=== PATIENT | female | born 1970 | race Caucasian/White ===

== ENCOUNTER → 2017-03-18 | Outpatient (CLI) | payer SELFPAY ==
[~2017-03-18] MED LIST: ALBUAER; ALBUAER INH; BACL10TA PO; BUPR150T47 PO; CYCL10TA7 PO; FENO145T26 PO; GABA-113 PO; GLC/500 PO; LISI-725 PO; LISI40TA PO; LRS10 PO; MECL1TAB42 PO; METO1TAB54 PO; PRVC40 PO; SERT50TA PO
--- NOTE | 2017-03-18 11:08 | Discharge Instructions ---
Discharge Instructions Procedure Procedure Date: Mar 18, 2017. Reason for visit: Thyroid Nodule. Discharge Discharge Date: Mar 18, 2017. Discharge Diagnosis: Right thyroid nodule Instructions Activity Recommendations: No limitations Return to School/Work: no limitations Recommended Home Diet: Resume Previous Diet Provider Instructions: Ultrasound guided fine-needle aspiration was performed on a dominant solid and cystic right lobe nodule with 2 passes utilizing 25-gauge needles. Specimens were reviewed by the pathologist in real-time and deemed adequate for diagnosis. The procedure was well tolerated and without immediate complication. Allergies Coded Allergies: No Known Allergies (Unverified , 03/06/16) Soha Purcell Recommendations: Call your doctor if: * Temperature above 101 degrees * Pain not relieved by pain medicine ordered * There is increased drainage or redness from any incision * You have any unanswered questions or concerns. Your Doctors Instructions noted above were prepared by provider Dwight Chang. Patient Signature Section: Patient Instructions Signature Page Breanne Galvanfallon Patient (or Guardian) Signature/Date: I have read and understand the instructions given to me by my caregivers. Caregiver/RN/Doctor Signature/Date: The above-named patient and/or guardian has received patient instructions on this date. + Original Patient Signature Page (only) stays with chart. Please make copy for patient.
--- NOTE | 2017-03-18 11:40 | DIAGNOSTIC IMAGING REPORT ---
ULTRASOUND-GUIDED FINE-NEEDLE ASPIRATION THYROID CLINICAL HISTORY: Right thyroid nodule. COMPARISON STUDY: Thyroid ultrasound dated 03/04/2017. PROCEDURE: The risks, benefits, and alternatives to the procedure were discussed with the patient. Written informed consent was obtained. The patient was placed supine in ultrasound, and the 2.2 x 2.1 x 1.3 cm solid and cystic nodule in the right lobe of the thyroid was localized by ultrasound and selected for fine needle aspiration. The right neck was prepped and draped in the usual sterile fashion. The nodule was aspirated under ultrasound guidance with 2 passes utilizing 25-gauge needles. Specimens were reviewed by the pathologist in real-time and deemed adequate for diagnosis. The patient tolerated the procedure well and left the department in satisfactory condition. IMPRESSION: Completed fine-needle aspiration of a right thyroid nodule as above. Electronically signed by: Dwight Chang M.D. 03/18/2017 11:38 AM Dictated Date/Time: 03/18/2017 11:37 AM
== END | disposition home or self-care (01) ==
LOC: C.ULTR 10:20
PROVIDERS: ATTEND Physician Assistant
DX: E04.2 Nontoxic multinodular goiter (principal)

== ENCOUNTER 2017-07-14 09:49 | Emergency (ER) | payer SELFPAY ==
[~2017-07-14] VITALS: Ht 154.9 cm; Wt 73.1 kg
[~2017-07-14 09:49] MED LIST changes: -ALBUAER; -BACL10TA PO; -GLC/500 PO; -LISI40TA PO; -LRS10 PO; -PRVC40 PO; -SERT50TA PO
[2017-07-14 09:51] VITALS: Ht 154.9 cm; Wt 73.1 kg
[2017-07-14 10:12] VITALS: O2SAT 98
[2017-07-14 10:26] LABS: MEAN CELL VOLUME 87.2 fL (80-100); MEAN CORPUSCULAR HEMOGLOBIN 30.6 pg (25-34); MEAN CORPUSCULAR HGB CONC 35.1 g/dl (32-36); PLATELET COUNT 207 K/uL (130-400); RED BLOOD COUNT 5.16 M/uL (4.2-5.4); WHITE BLOOD COUNT 10.26 K/uL (4.8-10.8)
--- NOTE | 2017-07-14 10:29 | DIAGNOSTIC IMAGING REPORT ---
CHEST ONE VIEW PORTABLE CLINICAL HISTORY: 46 years-old Female presenting with chest pain. TECHNIQUE: Portable upright AP view of the chest was obtained. COMPARISON: 03/07/2016. FINDINGS: Cardiomediastinal silhouette normal. Lungs and pleural spaces clear. Osseous structures normal. Upper abdomen normal. IMPRESSION: 1. No acute cardiopulmonary disease. Electronically signed by: Lit Ngerete M.D. 07/14/2017 10:28 AM Dictated Date/Time: 07/14/2017 10:28 AM
[2017-07-14 10:34] LABS: PARTIAL THROMBOPLASTIN RATIO 1.2; PROTHROMBIN TIME (PATIENT) 10.7 SECONDS (9.0-12.0)
[2017-07-14 11:02] LABS: BUN/CREATININE RATIO 7.5 (10-20); CALCIUM 8.4 mg/dl (8.5-10.1); CREATININE 0.84 mg/dl (0.60-1.20); POTASSIUM 4.4 mmol/L (3.5-5.1)
[2017-07-14 11:06] LABS: ALB/GLOB RATIO 0.9 (0.9-2); CKMB/CK RATIO 1.6 (0-3.0)
--- NOTE | 2017-07-14 11:07 | EMERGENCY ROOM VISIT NOTE ---
History Report prepared by Naila: Yan Fisher Under the Supervision of: Dr. Clementina Richter D.O. First contact with patient: 10:24 Chief Complaint: CARDIAC ASSESSMENT Stated Complaint: CHEST PAIN, R SHOULDER PAIN, NAUSEA Nursing Triage Summary: Patient reports mid sternal chest pain with radiation to the right shoulder states this started on Friday. Patient has history of Diabeties, HTN, Hyperlipidemia, states she had a cardiac cath two years ago and was told at that time she had a 20% blockage. Patient also c/o nausea this morning denies any shortness of breath. History of Present Illness The patient is a 46 year old female who presents to the Emergency Room with complaints of constant sharp chest pain for the past three days. The patient additionally states that she is having some right sided shoulder pain, and she has been nauseous. The pain is exacerbated with movement. She states that yesterday she woke up very off balance. The patient states that she had similar symptoms two years ago, and a catheterization was done. She states that she was supposed to have a follow up with a television announcer this week, though she did not attend. The patient states that she has a family history of cardiac disease, and he dad of a heart attack before the age of 60. She denies any recent change in medication or activity, and she denies any recent long travels. The patient has a history of smoking as well. Pt denies any reflux, leg swelling, rashes, sores, headache, change in vision, fevers, shortness of breath, vomiting , diarrhea, pain with urination, and melena. Source of History: patient Onset: three days ago Position: chest Quality: sharp Timing: constant Modifying Factors (Worsening): movement Associated Symptoms: + nausea, No vomiting Note: Associated symptoms: Right sided shoulder pain Review of Systems See HPI for pertinent positives & negatives. A total of 10 systems reviewed and were otherwise negative. Past Medical & Surgical Medical Problems: (1) Bronchitis (2) Chest pain at rest (3) Hypertension Surgical Problems: (1) H/O section (2) History of tonsillectomy Family History Diabetes mellitus Heart disease Hypertension Seizures Social History Smoking Status: Current Every Day Smoker Alcohol Use: none Drug Use: none Marital Status: Housing Status: lives with significant other Occupation Status: employed Current/Historical Medications Scheduled Baclofen (Baclofen), 10 MG PO UD Baclofen (Lioresal), 5 MG PO HS Lisinopril (Zestril), 40 MG PO DAILY Metformin Hcl (Glucophage), 500 MG PO BID Pravastatin Sod (Pravastatin Sodium), 40 MG PO DAILY Sertraline (Zoloft), 50 MG PO DAILY Miscellaneous Medications Albuterol Sulfate (Proventil Hfa) Allergies Coded Allergies: No Known Allergies (Unverified , 07/14/17) Physical Exam Vital Signs Date Time Temp Pulse Resp B/P (MAP) Pulse Ox O2 Delivery O2 Flow Rate FiO2 07/14/17 15:13 36.8 61 20 121/75 98 07/14/17 15:12 61 20 121/75 98 Room Air 07/14/17 14:30 69 20 97/51 94 Room Air 07/14/17 13:34 64 18 102/60 94 Room Air 07/14/17 13:08 60 07/14/17 12:33 64 18 102/71 99 Room Air 07/14/17 11:45 62 20 112/64 99 Room Air 07/14/17 10:12 98 Room Air 07/14/17 10:10 96 Room Air 07/14/17 10:06 97 Room Air 07/14/17 10:02 71 07/14/17 09:51 36.8 65 16 131/79 98 Room Air Physical Exam GENERAL: alert, well appearing, well nourished, no distress, non-toxic EYE EXAM: normal conjunctiva, PERRL and EOM's grossly intact OROPHARYNX: Poor dentition. no exudate, no erythema, lips, buccal mucosa, and tongue normal and mucous membranes are moist NECK: supple, no nuchal rigidity, no adenopathy, non-tender LUNGS: Decreased lung sounds bilaterally. No wheezes rhonchi or rales. Normal chest wall mechanics HEART: no murmurs, S1 normal and S2 normal CHEST: Some reproducible chest pain at the bilateral sternal border. ABDOMEN: No pulsatile masses or organomegaly. Abdomen soft, non-tender, normo- active bowel sounds, no masses, no rebound or guarding. BACK: Back is symmetrical on inspection and there is no deformity, no midline tenderness, no CVA tenderness. SKIN: no rashes and no bruising UPPER EXTREMITIES: Tenderness to palpation of the right scapula posteriorly. Upper extremities are grossly normal. LOWER EXTREMITIES: No pitting edema. NEURO EXAM: Normal sensorium, cranial nerves II-XII [grossly] intact, normal speech, no [gross] weakness of arms, no [gross] weakness of legs. [No drift. Finger to nose intact. Gross sensation intact.] Medical Decision & Procedures ER Provider Diagnostic Interpretation: Radiology results have been interpreted by the radiologist and reviewed by me. CHEST ONE VIEW PORTABLE CLINICAL HISTORY: 46 years-old Female presenting with chest pain. TECHNIQUE: Portable upright AP view of the chest was obtained. COMPARISON: 03/07/2016. FINDINGS: Cardiomediastinal silhouette normal. Lungs and pleural spaces clear. Osseous structures normal. Upper abdomen normal. IMPRESSION: 1. No acute cardiopulmonary disease. Electronically signed by: Lit Negrete M.D. 07/14/2017 10:28 AM Dictated Date/Time: 07/14/2017 10:28 AM (CHEST FOR PE) ANGIO WITH CLINICAL HISTORY: 46 years-old Female presenting with chest pain, nausea, elevated d-dimer. TECHNIQUE: Multidetector CT angiography of the chest was performed after administration of intravenous contrast. 3-D volumetric and/or maximum intensity projection (MIP) images were subsequently reconstructed for review. IV contrast: 108 mL of Optiray 320. A dose lowering technique was used consistent with the principles of ALARA (as low as reasonably achievable). COMPARISON: 02/18/2017. CT DOSE (mGy.cm): The estimated cumulative dose is 302.01 mGy.cm. FINDINGS: Application Defense Manager topogram: Unremarkable. Pulmonary vasculature: The study is adequate for assessment of the pulmonary vascular tree. No filling defect within the pulmonary arteries to suggest embolus. Main pulmonary artery not enlarged. No flattening of the interventricular septum. No intracardiac filling defect. Remaining chest: On soft tissue windows, normal thyroid and thoracic inlet. No axillary, supraclavicular, or mediastinal lymphadenopathy. Few small subcentimeter hilar lymph nodes, likely reactive. Normal aorta. Normal heart size. No pericardial or pleural effusion. Few prominent lymph nodes in the marciano hepatis, nonspecific and possibly reactive. Hepatic steatosis may be present with fatty sparing of the gallbladder fossa. On lung windows, trace emphysema at the apices. Persistent subtle diffuse groundglass centrilobular opacities most prominently at the apices. Additional minimal groundglass opacity dependently in the right lower lobe, likely atelectasis. Perifissural 4 mm solid pulmonary nodule in the right lower lobe (series 4 image 152), unchanged from prior. Several additional perifissural nodules also noted and unchanged from prior. Mild bronchial wall thickening may be present. On bone windows, degenerative changes of the thoracic spine. IMPRESSION: 1. No evidence of pulmonary embolus. 2. Trace emphysema. 3. Subtle diffuse groundglass centrilobular opacities at the apices associated with mild bronchial wall thickening. If the patient has a history of smoking, this could be compatible with mild respiratory bronchiolitis/smoking related lung injury, among other possible etiologies. 4. Stable perifissural small pulmonary nodules. 5. Suggestion of hepatic steatosis. Electronically signed by: Lit Negrete M.D. 07/14/2017 12:11 PM Dictated Date/Time: 07/14/2017 12:03 PM Laboratory Results 07/14/17 10:00 07/14/17 10:00 Test 07/14/17 10:00 07/14/17 10:17 Red Blood Count 5.16 M/uL (4.2-5.4) Mean Corpuscular Volume 87.2 fL (80-100) Mean Corpuscular Hemoglobin 30.6 pg (25-34) Mean Corpuscular Hemoglobin Concent 35.1 g/dl (32-36) RDW Standard Deviation 45.5 fL (36.4-46.3) RDW Coefficient of Variation 14.2 % (11.5-14.5) Mean Platelet Volume 10.0 fL (7.4-10.4) Prothrombin Time 10.7 SECONDS (9.0-12.0) Prothromb Time International Ratio 1.0 (0.9-1.1) Activated Partial Thromboplast Time 30.2 SECONDS (21.0-31.0) Partial Thromboplastin Ratio 1.2 D-Dimer 1520 ug/L FEU (0-500) Anion Gap 7.0 mmol/L (3-11) Est Creatinine Clear Calc Drug Dose 74.9 ml/min Estimated GFR () 95.3 Estimated GFR (Non- 82.2 BUN/Creatinine Ratio 7.5 (10-20) Calcium Level 8.4 mg/dl (8.5-10.1) Total Bilirubin 0.3 mg/dl (0.2-1) Aspartate Amino Transf (AST/SGOT) 17 U/L (15-37) Alanine Aminotransferase (ALT/SGPT) 23 U/L (12-78) Alkaline Phosphatase 78 U/L (45-117) Total Creatine Kinase 62 U/L (26-192) Creatine Kinase MB 1.0 ng/ml (0.5-3.6) Creatine Kinase MB Ratio 1.6 (0-3.0) Total Protein 7.4 gm/dl (6.4-8.2) Albumin 3.5 gm/dl (3.4-5.0) Globulin 3.9 gm/dl (2.5-4.0) Albumin/Globulin Ratio 0.9 (0.9-2) Bedside Troponin I < 0.030 ng/ml (0-0.045) Laboratory results per my review. Medications Administered Medications (Trade) Dose Ordered Sig/[place] Route Start Time Stop Time Status Last Admin Dose Admin Sodium Chloride 1,000 ml @ 999 mls/hr Q1H1M STAT IV 07/14/17 11:16 07/14/17 12:16 DC 07/14/17 11:23 999 MLS/HR Al Hydroxide/Mg Hydroxide (Maalox Susp) 30 ml NOW STAT PO 07/14/17 12:24 07/14/17 12:25 DC 07/14/17 12:31 30 ML Ketorolac Tromethamine (Toradol Inj) 30 mg NOW STAT IV 07/14/17 12:24 07/14/17 12:25 DC 07/14/17 12:31 30 MG Ondansetron HCl (Zofran 8mg Iv) 8 mg NOW STAT IV 07/14/17 13:20 07/14/17 13:21 DC 07/14/17 13:34 8 MG ECG Indication: chest pain, back/shoulder pain Rate (beats per minute): 61 Rhythm: normal sinus Findings: no acute ischemic change, no ectopy, other (Normal intervals and normal axis) ED Course 1024: The patient was evaluated in room A4. A complete history and physical exam was performed. 1116: Sodium Chloride 1000 ml @ 999 mls/hr IV 1223: I reevaluated the patient, and she is feeling slightly better now. 1224: Toradol Inj 30mg IV, Maalox Susp 30ml PO 1319: I reassessed the patient, and her pain is better, but she is nauseous. 1320: Zofran 8mg IV 1453: I rechecked the patient, and she is feeling better and ready to go home. I discussed the findings and the treatment plan with the patient. She verbalizes agreement and understanding. She was discharged home. Medical Decision Differential diagnosis: Etiologies such as cardiac ischemia, aortic dissection, pulmonary embolism, pneumonia, pneumothorax, musculoskeletal, infections, pericarditis, myocarditis , esophageal rupture, gastrointestinal, as well as others were entertained. Pt here concerned about cardiac etiology of her chest/back pain given fam hx and personal risk factors. Cardiac cath two years ago pt reports as no intervention and minimal nonobstructive disease. Pt however noncompliant with follow-up. Pt still smoking also. Denies change in activity, no heavy lifting , no trauma, no recent illness. Discussed all results with her. Given neg trop after 3 days of reportedly constant pain and nonobstructive cath within 5 years, doubt ACS. No evidence on CT of pe, dissection, tamponade, effusion, infiltrate. No abd pain or v/d, and other labs reassuring, no fevers, doubt gi bleed, biliary colic, perf, aaa, pancreatitis, PUD, sbo, colitis. Pt improved here with meds, tolerated po. VS stable throughout. Pt observed for several hours as a precaution. Ambulatory with a steady gait. Discussed f/u with cards which she has scheduled for july. Discussed cessation of tobacco abuse. Discussed sx to watch/return for, she verbalized understanding and was agreeable with plan. Medication Reconcilliation Current Medication List: was personally reviewed by me Blood Pressure Screening Patient's blood pressure: Normal blood pressure Impression Primary Impression: Chest pain Additional Impressions: Back pain Tobacco abuse Scribe Attestation The scribe's documentation has been prepared under my direction and personally reviewed by me in its entirety. I confirm that the note above accurately reflects all work, treatment, procedures, and medical decision making performed by me. Departure Information Dispostion Home / Self-Care Referrals Ria Wilkinson PA-C (PCP) Forms IMPORTANT VISIT INFORMATION Patient Instructions [facility] Additional Instructions Please keep your appointment with cardiology. Please call and follow up with your family doctor this week. Please continue regular medications as prescribed. If you have any worsening pain, dizziness or lightheadedness, trouble breathing, vomiting, fevers, or you have any other new concerns, please return the emergency room. Problem Qualifiers Primary Impression: Chest pain Chest pain type: unspecified Qualified Codes: R07.9 - Chest pain, unspecified Additional Impressions: Back pain Back pain location: thoracic back pain Chronicity: acute Back pain laterality: right Qualified Codes: M54.6 - Pain in thoracic spine
[2017-07-14] MEDS ORDERED: SODIUM CHLORIDE 0.9% 1000ML 1,000 ML IV STA (11:16)
[2017-07-14] MEDS ORDERED: BACL10TA PO (11:21)
[2017-07-14] MEDS ORDERED: GLC/500 PO (11:21)
[2017-07-14] MEDS ORDERED: ALBUAER (11:21)
[2017-07-14] MEDS ORDERED: LRS10 PO (11:21)
[2017-07-14] MEDS ORDERED: LISI40TA PO (11:21)
[2017-07-14] MEDS ORDERED: PRVC40 PO (11:21)
[2017-07-14] MEDS ORDERED: SERT50TA PO (11:21)
[2017-07-14] MEDS ORDERED: OPTIRAY 320 IV PRN (11:30)
--- NOTE | 2017-07-14 12:12 | DIAGNOSTIC IMAGING REPORT ---
(CHEST FOR PE) ANGIO WITH CLINICAL HISTORY: 46 years-old Female presenting with chest pain, nausea, elevated d-dimer. TECHNIQUE: Multidetector CT angiography of the chest was performed after administration of intravenous contrast. 3-D volumetric and/or maximum intensity projection (MIP) images were subsequently reconstructed for review. IV contrast: 108 mL of Optiray 320. A dose lowering technique was used consistent with the principles of ALARA (as low as reasonably achievable). COMPARISON: 02/18/2017. CT DOSE (mGy.cm): The estimated cumulative dose is 302.01 mGy.cm. FINDINGS: Mobile Patrol Officer topogram: Unremarkable. Pulmonary vasculature: The study is adequate for assessment of the pulmonary vascular tree. No filling defect within the pulmonary arteries to suggest embolus. Main pulmonary artery not enlarged. No flattening of the interventricular septum. No intracardiac filling defect. Remaining chest: On soft tissue windows, normal thyroid and thoracic inlet. No axillary, supraclavicular, or mediastinal lymphadenopathy. Few small subcentimeter hilar lymph nodes, likely reactive. Normal aorta. Normal heart size. No pericardial or pleural effusion. Few prominent lymph nodes in the marciano hepatis, nonspecific and possibly reactive. Hepatic steatosis may be present with fatty sparing of the gallbladder fossa. On lung windows, trace emphysema at the apices. Persistent subtle diffuse groundglass centrilobular opacities most prominently at the apices. Additional minimal groundglass opacity dependently in the right lower lobe, likely atelectasis. Perifissural 4 mm solid pulmonary nodule in the right lower lobe (series 4 image 152), unchanged from prior. Several additional perifissural nodules also noted and unchanged from prior. Mild bronchial wall thickening may be present. On bone windows, degenerative changes of the thoracic spine. IMPRESSION: 1. No evidence of pulmonary embolus. 2. Trace emphysema. 3. Subtle diffuse groundglass centrilobular opacities at the apices associated with mild bronchial wall thickening. If the patient has a history of smoking, this could be compatible with mild respiratory bronchiolitis/smoking related lung injury, among other possible etiologies. 4. Stable perifissural small pulmonary nodules. 5. Suggestion of hepatic steatosis. Electronically signed by: Lit Negrete M.D. 07/14/2017 12:11 PM Dictated Date/Time: 07/14/2017 12:03 PM
[2017-07-14] MEDS ORDERED: ALUMINUM/MAGNESIUM SUSP 30 ML UDC PO STA (12:24)
[2017-07-14] MEDS ORDERED: KETOROLAC TROMETHAMINE 30 MG/ML VIAL IV STA (12:24)
[2017-07-14] MEDS ORDERED: ONDANSETRON 8 MG/54 ML D5W IV STA (13:20)
[2017-07-14 15:13] VITALS: BP 121/75; PULSE 61; TEMP 36.8; O2SAT 98
== END 2017-07-14 15:20 | disposition home or self-care (01) ==
LOC: C.EDB 09:50 → C.EDA 15:20
DX: M54.6 Pain in thoracic spine (principal); I10 Essential (primary) hypertension; Z83.3 Family history of diabetes mellitus; Z82.49 Family history of ischemic heart disease and other diseases of the circulatory system; Z82.0 Family history of epilepsy and other diseases of the nervous system; F17.200 Nicotine dependence, unspecified, uncomplicated; R07.9 Chest pain, unspecified

== ENCOUNTER 2021-07-26 15:50 | Observation (INO) ==
[2021-07-26] MEDS ORDERED: ACETAMINOPHEN 1000 MG/100 ML IV IV STA (16:55)
[2021-07-26] MEDS ORDERED: KETOROLAC TROMETHAMINE 15 MG/ML VIAL IV STA (16:55)
[2021-07-26] MEDS ORDERED: CEFEPIME 2,000 MG/20 ML VIAL IV STA (16:55)
[2021-07-26] MEDS ORDERED: ONDANSETRON INJ 2 MG/ML 2 ML VIAL IV STA (16:55)
[2021-07-26] MEDS ORDERED: SODIUM CHLORIDE 0.9% 1000ML 1,000 ML IV SCH (17:00)
--- NOTE | 2021-07-26 17:06 | Emergency Department Note ---
Impression & Plan Pyelonephritis, Acute right flank pain, Vomiting, Leukocytosis ED Provider Note NAME: OSVALDO DAVIS AGE: 50 SEX: F : 1970 ARRIVES VIA: Walk-In INFORMANT: [Patient] ED PROVIDER(S): [Diwght Martin MD] CHIEF COMPLAINT: Illness HISTORY OF PRESENT ILLNESS: The patient is a 50-year old female who has been ill with around 4 days of right flank pain. The patient states that she has had a fever and chills. The pain is severe in the right flank and worse when she moves. The patient was in our ED yesterday and diagnosed with a UTI and pyelonephritis. She was offered a hospital stay but chose to go home. She was placed on Omnicef. Today, the patient feels worse. She is also now vomiting and cannot keep her meds down. She presents to the ER saying that she is willing to stay in the hospital. The patient is vaccinated against COVID-19, she has had no Covid exposures. She states that she has never had a kidney infection before. REVIEW OF SYSTEMS: See HPI for pertinent positives and negatives. A total of ten systems were reviewed and were otherwise negative. PMHx/PSHx: See Below SOCIAL HISTORY: See Below. PHYSICAL EXAM: GENERAL: Patient is in no acute distress. HEENT: No acute trauma, normocephalic atraumatic, mucous membranes moist, no nasal congestion, no scleral icterus. NECK: No stridor, no adenopathy, no meningismus, trachea is midline. LUNGS: Clear to auscultation bilaterally, no wheeze, no rhonchi, breath sounds equal. HEART: Mildly tachycardic, regular rhythm, no murmurs. ABDOMEN: Soft, moderately tender along the right side of the abdomen, bowel sounds positive, no hernias, no peritonitis. EXTREMITIES: No cyanosis or edema, full range of motion of all the joints without pain or difficulty, no signs for acute trauma. NEUROLOGIC: Oriented x 3, no acute motor or sensory deficits, no focal weakness. SKIN: No rash, no jaundice, no diaphoresis. Back: Right flank discomfort to percussion. DIFFERENTIAL DIAGNOSIS: Sepsis, UTI, pyelonephritis, pneumonia, metabolic abnormality, electrolyte ab normalities, cardiac sources, cellulitis, bacteremia, intracerebral event, toxicologic etiology, neurologic event, as well as other pathologies. EMERGENCY DEPARTMENT COURSE/PROCEDURES: ECG: Indication was tachycardia and possible sepsis. The ECG shows a normal s inus rhythm with a rate of 100. There is no ST elevation, no PVCs. The QTc is 446. Continuous Cardiac Monitoring: An order was placed for continuous cardiac monitoring. The monitor shows a rate of 97 with normal sinus rhythm. MEDICAL DECISION MAKING: There is a mild leukocytosis, this could be of course consistent with infection. There is a normal hemoglobin and platelet count. Potassium was low at 3.3. Magnesium was low at 1.5. No kidney failure. Lactic acid level is not elevated making severe sepsis less likely. There is no concerning liver enzyme elevation. Covid testing returned negative. Urinalysis from yesterday is growing gram-negative bacilli. Ultrasound from yesterday did not show any right-sided hydronephrosis. On exam, the patient presents febrile and tachycardic. She had right flank and right sided abdominal pain on exam. The patient received IV saline, 1 L. She was given IV Tylenol, IV cefepime and IV Toradol. She is given IV Zofran, IV magnesium and IV potassium. The patient is in need of a hospital stay. She has failed outpatient management for her pyelonephritis. She is now vomiting. I do think a hospital stay is in her best interest. I spoke to the patient and clinical case manager. The on-call hospitalist was consulted. Past Med/Surg History Medical History Anxiety Asthma Bipolar disorder Bronchitis chronic bronchitis Chronic back pain Chronic obstructive pulmonary disease inhalers daily Degenerative cervical disc Degenerative disc disease Depression Diabetes NIDDM Fibromyalgia Hyperlipidemia Hypertension Migraine hx Osteoarthritis Surgical History History of cardiac catheterization no stents (2017) History of section x2 History of colposcopy History of tonsillectomy History of tubal ligation with second Family History Father Seizure disorder Cardiac disorder Mother Diabetes Hypertension Sister FH: thyroid disease Social History Smoking Status: Current every day smoker Tobacco Type: Cigarettes Cigarettes Per Day: nicotine patch and smokes 10 cig daily; Second Hand Exposure: Yes; Hx Alcohol Use: Yes Hx Substance Use: Yes (recreational use) Last Used Substance Other:: nightly Preferred Language: American Communication Ability: Effective Rn Family Practice Required: No Beliefs That Will Affect Care: None Current Living Situation: Family Feels Safe at Home: Yes Assistive Devices: Denture - Upper, Denture - Lower and Glasses Allergies Allergies Allergy/AdvReac Type Severity Reaction Status Date / Time niacin Allergy Severe redness, Verified 07/26/21 17:01 itching head to toe Sulfa (Sulfonamide Allergy Severe redness Verified 07/26/21 17:01 Antibiotics) head to toe and itching Home Meds Home Medications Medication Instructions Recorded Confirmed lisinopril 40 mg tablet 40 mg PO QAM #90 tab 08/16/19 07/26/21 magnesium oxide 500 mg capsule 500 mg PO QAM cap 08/16/19 07/26/21 [id number]-epa-fish oil 120 1 cap PO QAM cap 08/16/19 07/26/21 mg-180 mg-60 mg-1,200 mg capsule, DR (Fish Oil) aspirin 81 mg tablet,delayed 81 mg PO QAM 07/13/20 07/26/21 release sertraline 100 mg tablet 150 mg PO QAM 07/13/20 07/26/21 gemfibrozil 600 mg tablet 600 mg PO BID 03/05/21 07/26/21 potassium gluconate 595 mg (99 mg) 595 mg PO DAILY 03/05/21 07/26/21 tablet albuterol sulfate 2.5 mg CONTINUOUS NEBULIZATION UD 07/26/21 07/26/21 PRN amlodipine 10 mg tablet 10 mg PO DAILY 07/26/21 07/26/21 baclofen 20 mg tablet 20 mg PO TID 07/26/21 07/26/21 diclofenac sodium 1 % topical gel 1 ea TOPICAL UD PRN 07/26/21 07/26/21 glipizide 5 mg tablet, extended 5 mg PO DAILY 07/26/21 07/26/21 release 24 hr hydrochlorothiazide 12.5 mg capsule 25 mg PO DAILY 07/26/21 07/26/21 metformin 500 mg tablet 1,000 mg PO BIDM 07/26/21 07/26/21 pravastatin 80 mg tablet 80 mg PO DAILY 07/26/21 07/26/21 Previous Rx's Medication Instructions Recorded albuterol sulfate 90 mcg/actuation 2 puff INHALATION Q4H PRN #18 g 03/05/21 aerosol inhaler fluticasone propionate 50 1 spray INTRANASAL DAILY #9.9 g 03/05/21 mcg/actuation nasal spray,suspension (Allergy Relief (fluticasone)) levocetirizine 5 mg tablet 5 mg PO DAILY PRN #30 tab 03/05/21 umeclidinium 62.5 mcg-vilanterol 1 inh INHALATION DAILY #60 ea 03/05/21 25 mcg/actuation powdr for inhalation (Anoro Ellipta) cefdinir 300 mg capsule 300 mg PO BID 10 Days #20 cap 07/26/21 Results & Data (ED) Vital Signs Vital Signs - 24 hr 07/26/21 16:00 07/26/21 17:46 07/26/21 17:48 Temperature 38.7 C H 38.2 C H Temperature Source Oral Oral Pulse Rate 110 H Pulse Rate [Apical] 97 H Pulse Rate from SpO2 Sensor Pulse Rhythm Regular Pulse Rhythm [Apical] Regular Pulse Strength Normal Pulse Strength [Apical] Normal Respiratory Rate 20 18 Respiratory Effort / Characteristics Non-Labored Spontaneous Non-Labored Spontaneous Respiratory Depth Normal Normal Respiratory Pattern Regular Regular Blood Pressure 151/79 H Blood Pressure [Left Arm] 136/67 Blood Pressure Mean 103 Blood Pressure Mean [Left Arm] 90 Blood Pressure Position [Left Arm] Sitting Pulse Oximetry 95 94 94 Oxygen Delivery Method Room Air Room Air Room Air Sepsis Recent Fever Within 48 Hours Yes Sepsis New/Unexplained Change in Mental Status N/A Sepsis Action Taken by Nursing No Action Required 07/26/21 18:00 07/26/21 18:30 07/26/21 19:00 Temperature 37.0 C Temperature Source Pulse Rate 89 91 H 84 Pulse Rate [Apical] Pulse Rate from SpO2 Sensor 90 90 84 Pulse Rhythm Pulse Rhythm [Apical] Pulse Strength Pulse Strength [Apical] Respiratory Rate 20 20 16 Respiratory Effort / Characteristics Respiratory Depth Respiratory Pattern Blood Pressure 131/64 123/64 118/62 Blood Pressure [Left Arm] Blood Pressure Mean 86 83 80 Blood Pressure Mean [Left Arm] Blood Pressure Position [Left Arm] Pulse Oximetry 93 96 93 Oxygen Delivery Method Room Air Room Air Room Air Sepsis Recent Fever Within 48 Hours Sepsis New/Unexplained Change in Mental Status Sepsis Action Taken by Prison Medications Current Medication List: was personally reviewed by me Laboratory Data Attestation: I reviewed the patient's lab results. Result diagrams: 07/26/21 17:21 07/26/21 17:21 Lab Results 07/26/21 07/26/21 07/26/21 Range/Units 16:48 16:48 17:19 WBC (4.8-10.8) K/uL RBC (4.2-5.4) M/uL Hgb (12.0-16.0) g/dL Hct (37-47) % MCV (80-100) fL MCH (25-34) pg MCHC (32-36) g/dL RDW Std Deviation (36.4-46.3) fL RDW Coeff of Rafael (11.5-14.5) % Plt Count (130-400) K/uL MPV (7.4-10.4) fL Immature Gran % (Auto) % Neut % (Auto) % Lymph % (Auto) % Pike % (Auto) % Eos % (Auto) % Baso % (Auto) % Neut # (Auto) (1.4-6.5) K/uL Lymph # (Auto) (1.2-3.4) K/uL Pike # (Auto) (0.11-0.59) K/uL Eos # (Auto) (0-0.5) K/uL Baso # (Auto) (0-0.2) K/uL Immature Gran # (Auto) (0.00-0.02) K/uL Sodium (136-145) mmol/L Potassium (3.5-5.1) mmol/L Chloride (98-107) mmol/L Carbon Dioxide (21-32) mmol/L Anion Gap (3-11) BUN (7-18) mg/dl Creatinine (0.6-1.2) mg/dl Est Cr Clr Drug Dosing ml/min Est GFR ( Amer) ml/min Est GFR (Non-Af Amer) ml/min BUN/Creatinine Ratio (10-20) Glucose (70-99) mg/dl Lactate 1.0 (0.4-2.0) mmol/L Calcium (8.5-10.1) mg/dl Magnesium (1.8-2.4) mg/dl Total Bilirubin (0.2-1) mg/dl AST (15-37) U/L ALT (12-78) U/L Alkaline Phosphatase (45-117) U/L Total Protein (6.4-8.2) gm/dl Albumin (3.4-5.0) gm/dl Globulin (2.5-4.0) gm/dl Albumin/Globulin Ratio (0.9-2) Procalcitonin (0-0.5) ng/ml COVID-19 Eval Order Covid19 at [facility] SARS-CoV-2 (PCR) NEGATIVE (Negative) 07/26/21 07/26/21 07/26/21 Range/Units 17:21 17:21 17:21 WBC 13.09 H (4.8-10.8) K/uL RBC 4.48 (4.2-5.4) M/uL Hgb 13.5 (12.0-16.0) g/dL Hct 39.5 (37-47) % MCV 88.2 (80-100) fL MCH 30.1 (25-34) pg MCHC 34.2 (32-36) g/dL RDW Std Deviation 44.6 (36.4-46.3) fL RDW Coeff of Rafael 13.7 (11.5-14.5) % Plt Count 196 (130-400) K/uL MPV 10.0 (7.4-10.4) fL Immature Gran % (Auto) 0.2 % Neut % (Auto) 80.2 % Lymph % (Auto) 10.8 % Pike % (Auto) 8.6 % Eos % (Auto) 0.1 % Baso % (Auto) 0.1 % Neut # (Auto) 10.50 H (1.4-6.5) K/uL Lymph # (Auto) 1.42 (1.2-3.4) K/uL Pike # (Auto) 1.12 H (0.11-0.59) K/uL Eos # (Auto) 0.01 (0-0.5) K/uL Baso # (Auto) 0.01 (0-0.2) K/uL Immature Gran # (Auto) 0.03 H (0.00-0.02) K/uL Sodium 134 L (136-145) mmol/L Potassium 3.3 L D (3.5-5.1) mmol/L Chloride 105 (98-107) mmol/L Carbon Dioxide 23 (21-32) mmol/L Anion Gap 7.0 (3-11) BUN 6 L (7-18) mg/dl Creatinine 0.76 (0.6-1.2) mg/dl Est Cr Clr Drug Dosing 80.5 ml/min Est GFR ( Amer) 104.5 ml/min Est GFR (Non-Af Amer) 90.2 ml/min BUN/Creatinine Ratio 7.4 L (10-20) Glucose 151 H (70-99) mg/dl Lactate (0.4-2.0) mmol/L Calcium 8.5 (8.5-10.1) mg/dl Magnesium 1.5 L (1.8-2.4) mg/dl Total Bilirubin 0.5 (0.2-1) mg/dl AST 11 L (15-37) U/L ALT 15 (12-78) U/L Alkaline Phosphatase 76 (45-117) U/L Total Protein 6.9 (6.4-8.2) gm/dl Albumin 3.0 L (3.4-5.0) gm/dl Globulin 3.9 (2.5-4.0) gm/dl Albumin/Globulin Ratio 0.8 L (0.9-2) Procalcitonin 2.43 H (0-0.5) ng/ml COVID-19 Eval Order SARS-CoV-2 (PCR) (Negative) Administered Medications Discontinued Medications Acetaminophen (Acetaminophen 1000 Mg/100 Ml Iv) 1,000 mg IV NOW STA Stop: 07/26/21 16:56 Last Admin: 07/26/21 17:29 Dose: 1,000 mg Documented by: [id number] Sodium Chloride (Nss 1000ml) 1,000 mls @ 999 mls/hr IV .Q1H1M [id number] Stop: 07/26/21 18:00 Last Admin: 07/26/21 17:30 Dose: 999 mls/hr Documented by: [id number] Cefepime HCl (Maxipime) 2,000 mg in 20 mls @ 5 mls/min IV NOW STA; Protocol Stop: 07/26/21 16:58 Last Admin: 07/26/21 17:30 Dose: 5 mls/min Documented by: [id number] Magnesium Sulfate/Dextrose (Magnesium Sulfate / D5w) 1 gm in 100 mls @ 100 mls/hr IV NOW STA Stop: 07/26/21 19:10 Last Admin: 07/26/21 18:59 Dose: 100 mls/hr Documented by: [id number] Potassium Chloride (K Suleman / Wtr) 10 meq in 100 mls @ 100 mls/hr IV ONE ONE Stop: 07/26/21 19:10 Last Admin: 07/26/21 18:59 Dose: 100 mls/hr Documented by: [id number] Ketorolac Tromethamine (Ketorolac Tromethamine 15 Mg/Ml Vial) 15 mg IV NOW STA Stop: 07/26/21 16:56 Last Admin: 07/26/21 17:30 Dose: 15 mg Documented by: [id number] Ondansetron HCl (Ondansetron Inj 2 Mg/Ml 2 Ml Vial) 4 mg IV NOW STA Stop: 07/26/21 16:56 Last Admin: 07/26/21 17:30 Dose: 4 mg Documented by: [id number] Discharge Plan Visit Data Chief Complaint: Illness Stated Complaint: PAIN,CHILLS, FEVER UTI PAIN IN RIGHT KIDNEY ED Provider: Dwight Martin Discharge Problem: Pyelonephritis, Acute right flank pain, Vomiting, Leukocytosis Patient Disposition: Admitted As Inpatient Condition: Fair Forms Stand Alone Forms: My [facility] Prescriptions Prescriptions: No Action potassium gluconate 595 mg (99 mg) tablet 595 mg PO DAILY RF: 0 gemfibrozil 600 mg tablet 600 mg PO BID RF: 0 albuterol sulfate 90 mcg/actuation HFA aerosol inhaler 2 puff inhalation Q4H PRN (Reason: sob) Qty: 18 RF: 3 Anoro Ellipta 62.5-25 mcg/actuation blister with device 1 inh inhalation DAILY Qty: 60 RF: 5 fluticasone propionate [Allergy Relief (fluticasone)] 50 mcg/actuation spray,suspension 1 spray intranasal DAILY Qty: 9.9 RF: 1 levocetirizine 5 mg tablet 5 mg PO DAILY PRN (Reason: allergy symptoms) Qty: 30 RF: 1 Fish Oil 120 mg-180 mg- 60 mg-1,200 mg capsule,delayed release(DR/EC) 1 cap PO QAM RF: 0 lisinopril 40 mg tablet 40 mg PO QAM Qty: 90 RF: 0 magnesium oxide 500 mg capsule 500 mg PO QAM RF: 0 sertraline 100 mg tablet 150 mg PO QAM RF: 0 aspirin 81 mg Tablet,Delayed Release (Dr/Ec) 81 mg PO QAM RF: 0 cefdinir 300 mg capsule 300 mg PO BID 10 Days Qty: 20 RF: 0 glipizide 5 mg tablet extended release 24hr 5 mg PO DAILY RF: 0 baclofen 20 mg tablet 20 mg PO TID RF: 0 albuterol sulfate 2.5 mg /3 mL (0.083 %) solution for nebulization 2.5 mg continuous nebulization UD PRN (Reason: Shortness Of Breath Or Wheezing) RF: 0 amlodipine 10 mg tablet 10 mg PO DAILY RF: 0 hydrochlorothiazide 12.5 mg capsule 25 mg PO DAILY RF: 0 metformin 500 mg tablet 1,000 mg PO BIDM RF: 0 pravastatin 80 mg tablet 80 mg PO DAILY RF: 0 diclofenac sodium 1 % gel 1 ea TOPICAL UD PRN (Reason: Pain) RF: 0 Referrals Referrals: PCP,NO [Primary Care Provider] -
[2021-07-26 17:48] LABS: Basophils # (auto) 0.01 K/uL (0-0.2); Basophils % (auto) 0.1 %; Eosinophils # (auto) 0.01 K/uL (0-0.5); Eosinophils % (auto) 0.1 %; Hematocrit (blood only) 39.5 % (37-47); Hemoglobin 13.5 g/dL (12.0-16.0); Immature Granulocytes # (auto) 0.03 K/uL (0.00-0.02); Immature Granulocytes % (auto) 0.2 %; Lymphocytes # (auto) 1.42 K/uL (1.2-3.4); Lymphocytes % (auto) 10.8 %; Mean Corpuscular Hemoglobin 30.1 pg (25-34); Mean Corpuscular Hgb Conc 34.2 g/dL (32-36); Mean Corpuscular Volume 88.2 fL (80-100); Monocytes # (auto) 1.12 K/uL (0.11-0.59); Monocytes % (auto) 8.6 %; Neutrophils % (auto) 80.2 %; Platelet Count 196 K/uL (130-400); RDW Coefficient of Variation 13.7 % (11.5-14.5); RDW Standard Deviation 44.6 fL (36.4-46.3); Red Blood Count 4.48 M/uL (4.2-5.4); White Blood Count 13.09 K/uL (4.8-10.8)
[2021-07-26 18:05] LABS: BUN Creatinine Ratio 7.4 (10-20); Calcium 8.5 mg/dl (8.5-10.1); Creatinine Clr Calc Pharmacy 80.5 ml/min; Est GFR (African American) 104.5 ml/min; Est GFR (Non-African American) 90.2 ml/min; Magnesium 1.5 mg/dl (1.8-2.4); Potassium 3.3 mmol/L (3.5-5.1)
[2021-07-26 18:10] LABS: Albumin Globulin Ratio 0.8 (0.9-2); Bilirubin,Total 0.5 mg/dl (0.2-1); Globulin 3.9 gm/dl (2.5-4.0); Total Protein 6.9 gm/dl (6.4-8.2)
[2021-07-26] MEDS ORDERED: MAGNESIUM SULFATE / D5W 1 GM/100 ML BAG IV STA (18:11)
[2021-07-26] MEDS ORDERED: POTASSIUM CHLORIDE / WTR 10 MEQ/100 ML PLCT IV ONE (18:11)
--- NOTE | 2021-07-26 19:06 | History & Physical Report ---
Date of Service July 26, 2021 Assessment & Plan (1) Pyelonephritis: Plan: Observation status to medical Follow up blood and urine cultures - currently growing GNB IV ceftriaxone 2g daily IV NSS @ 150 ml/hr CT A/P to assess for ureterolithiasis (2) Current smoker: Plan: Declines nicotine patch (3) Diabetes: Plan: HbA1C wih AM labs Hold outpatient regimen with metformin and glipizide BSG ACHS Novolog ACHS carb and correction coverage (4) Hypertension: Plan: Hold amlodipine and HCTZ, can restart if blood pressure increases. Continue lisinopril 40mg PO daily (5) Chronic obstructive pulmonary disease: Plan: Continue Anoro Ellipta 1 puff daily (6) Depression: Plan: Sertraline 150mg PO daily (7) Chronic back pain: Plan: Continue baclofen 10mg TID History of Present Illness Chief Complaint: Right flank pain Primary Care Provider: NO PCP Breanne Fairchild is a 50 year old female who presents to the ER with right flank pain, fevers and chills. Symptoms started with right flank pain, aching, no radiation, worse on any movement. Progressively getting worse over the week. She was seen in the ER last night, diagnosed with pyelonephritis treated with 1g ceftriaxone and discharged on cefdinir. She was unable to tolerate oral antibiotics when she got home due to vomiting after taking them therefore r eturned to the ER for admission. No prior history of UTIs or kidney stones. In the ER WBC improved from 16 to 13. She was referred to medicine for admission and ongoing management of pyelonephritis. Allergies Allergy/AdvReac Type Severity Reaction Status Date / Time niacin Allergy Severe redness, Verified 07/26/21 17:01 itching head to toe Sulfa (Sulfonamide Allergy Severe redness Verified 07/26/21 17:01 Antibiotics) head to toe and itching Home Medications Medication Instructions Recorded Confirmed Type lisinopril 40 mg tablet 40 mg PO QAM #90 tab 08/16/19 07/26/21 History magnesium oxide 500 mg capsule 500 mg PO QAM cap 08/16/19 07/26/21 History fnyyc-7i-cxl-epa-fish oil 120 1 cap PO QAM cap 08/16/19 07/26/21 History mg-180 mg-60 mg-1,200 mg capsule, DR (Fish Oil) aspirin 81 mg tablet,delayed 81 mg PO QAM 07/13/20 07/26/21 History release sertraline 100 mg tablet 150 mg PO QAM 07/13/20 07/26/21 History albuterol sulfate 90 mcg/actuation 2 puff INHALATION Q4H PRN #18 g 03/05/21 07/26/21 Rx aerosol inhaler fluticasone propionate 50 1 spray INTRANASAL DAILY #9.9 g 03/05/21 07/26/21 Rx mcg/actuation nasal spray,suspension (Allergy Relief (fluticasone)) gemfibrozil 600 mg tablet 600 mg PO BID 03/05/21 07/26/21 History levocetirizine 5 mg tablet 5 mg PO DAILY PRN #30 tab 03/05/21 07/26/21 Rx potassium gluconate 595 mg (99 mg) 595 mg PO DAILY 03/05/21 07/26/21 History tablet umeclidinium 62.5 mcg-vilanterol 1 inh INHALATION DAILY #60 ea 03/05/21 07/26/21 Rx 25 mcg/actuation powdr for inhalation (Anoro Ellipta) albuterol sulfate 2.5 mg CONTINUOUS NEBULIZATION UD 07/26/21 07/26/21 History PRN amlodipine 10 mg tablet 10 mg PO DAILY 07/26/21 07/26/21 History baclofen 20 mg tablet 20 mg PO TID 07/26/21 07/26/21 History cefdinir 300 mg capsule 300 mg PO BID 10 Days #20 cap 07/26/21 07/26/21 Rx diclofenac sodium 1 % topical gel 1 ea TOPICAL UD PRN 07/26/21 07/26/21 History glipizide 5 mg tablet, extended 5 mg PO DAILY 07/26/21 07/26/21 History release 24 hr hydrochlorothiazide 12.5 mg capsule 25 mg PO DAILY 07/26/21 07/26/21 History metformin 500 mg tablet 1,000 mg PO BIDM 07/26/21 07/26/21 History pravastatin 80 mg tablet 80 mg PO DAILY 07/26/21 07/26/21 History Past Med/Surg History Medical History (Updated 07/26/21 @ 20:11 by Too Ventura MD) Anxiety Asthma Bipolar disorder Bronchitis chronic bronchitis Chronic back pain Chronic obstructive pulmonary disease inhalers daily Degenerative cervical disc Degenerative disc disease Depression Diabetes NIDDM Fibromyalgia Hyperlipidemia Hypertension Migraine hx Osteoarthritis Surgical History History of cardiac catheterization no stents (2017) History of section x2 History of colposcopy History of tonsillectomy History of tubal ligation with second Family History Father Seizure disorder Cardiac disorder Mother Diabetes Hypertension Sister FH: thyroid disease Social History Smoking Status: Current every day smoker Tobacco Type: Cigarettes Cigarettes Per Day: less than a pack; Second Hand Exposure: Yes; Do You Dip or Chew Tobacco: No; Tobacco Cessation Education Requested by Patient: No Hx Alcohol Use: Yes Hx Substance Use: No Preferred Language: Japanese Communication Ability: Effective Supervisor Kosher Dietary Service Required: No Beliefs That Will Affect Care: None Current Living Situation: Spouse Other Information That Helps Us Care for You: No Feels Safe at Home: Yes Safety Concerns: Feels Safe At This Time Assistive Devices: Glasses Assistive Devices Comment: glasses here dentures not here Review of Systems Review of Systems: All systems reviewed & are unremarkable except as noted in HPI & below Physical Exam Constitutional: WD/WN, vitals as above Eyes: + anicteric sclerae; normal pupil size ENMT: external ear and nose normal, oropharynx normal Neck: trachea midline, no thyromegaly Respiratory: normal respiratory effort, lungs clear to auscultation Cardiovascular: RRR, no murmur, no edema Gastrointestinal (Abdomen): Inspection/Auscultation: normal bowel sounds; abdomen not distended Percussion/Palpation: abdomen soft; abdomen nontender, no guarding and abdomen not rigid Musculoskeletal: no cyanosis or clubbing, extremities motor strength 5/5 Skin: no rashes, warm and dry Neurologic: moves all extremities and awake; not confused Psychiatric: A+Ox3, euthymic affect Genitourinary: + CVA tenderness (right) Results & Data Results & Data ([facility]) Vital Signs (Past 12 Hours) Vital Signs Temp Pulse Pulse Resp BP BP Pulse Ox 07/26/21 17:48 94 07/26/21 17:46 38.2 C H 97 H 18 136/67 94 07/26/21 16:00 38.7 C H 110 H 20 151/79 H 95 Diagnostic Findings PA CHEST RADIOGRAPH AND UPRIGHT AND SUPINE AP RADIOGRAPHS OF THE ABDOMEN FINDINGS: Lung volumes are normal. There is no pneumothorax or pleural effusion. No consolidation or evidence for pulmonary edema. Cardiac size is normal. Mediastinal contours are normal. There is no free air. Bowel gas pattern is normal. IMPRESSION: 1. No free air or evidence of bowel obstruction. 2. No acute cardiopulmonary findings. ULTRASOUND RIGHT UPPER QUADRANT ABDOMEN Liver: The liver is enlarged and demonstrates heterogeneously increased echotexture consistent with hepatic steatosis. There is no intrahepatic biliary ductal dilatation. The main portal vein is patent. Gallbladder: Scattered polyps measure up to 3 mm. The gallbladder is otherwise normal in appearance. No shadowing gallstones are identified. There is no gallbladder wall thickening or pericholecystic fluid. A sonographic Brewer's sign is reportedly absent. The common bile duct measures up to 0.6 cm in diameter. Pancreas: Visualized portions of the pancreatic head and body are normal in appearance. The splenic vein is patent. Right kidney: Survey images of the right kidney demonstrate normal size and echotexture. There is no hydronephrosis. Ascites: None. IMPRESSION: 1. No acute sonographic abnormality is seen in the right upper quadrant. No shadowing gallstones are identified. 2. Hepatomegaly and hepatic steatosis. 3. Small gallbladder polyps are incidentally noted. Medications Administered ER Medications Given: NSS 1000ml bolus Cefepime 2g IV Toradol 15mg IV Ondansetron 4mg IV Acetaminophen 1000mg IV Magnesium sulphate 1g IV Potassium Chloride 10 meq IV ECG Indication: abdominal pain Rate (beats per minute): 100 Rhythm: normal sinus Findings: no acute ischemic change Comparison ECG Date: from (July 25, 2021) Change: no significant change Code Status & VTE Plan Code Status Full VTE Prophylaxis Plan VTE Prophylaxis will be ordered: Yes Reason for no VTE drug order: Treatment not indicated PG Care Time/CCT Total # of Minutes Spent Total Time Spent with Patient: Total time spent is greater than 50% in coordination of care (as documented) at patient's floor/unit and/or counseling patient: Coding Level of Care Code INT OBSERVATION CARE 50M LVL 2 Diagnoses Pyelonephritis N12 Current smoker F17.200 Chronic obstructive pulmonary disease J44.9 Hypertension I10 Diabetes E11.9 Depression F32.9 Chronic back pain M54.9; G89.29
[2021-07-26] MEDS ORDERED: GLUCOSE 40% GEL 15 GM TUBE PO PRN (20:57)
[2021-07-26] MEDS ORDERED: DEXTROSE 50% 50 ML SYRINGE IV PRN (20:57)
[2021-07-26] MEDS ORDERED: ACETAMINOPHEN 325 MG TAB PO PRN (20:57)
[2021-07-26] MEDS ORDERED: ONDANSETRON INJ 2 MG/ML 2 ML VIAL IV PRN (20:57)
[2021-07-26] MEDS ORDERED: CARBOHYDRATES FOR HYPOGLYCEMIA PO PRN (20:57)
[2021-07-26] MEDS ORDERED: HYDROmorphone INJ 0.5 MG/0.5 ML SYR IV PRN (20:57)
[2021-07-26] MEDS ORDERED: GLUCOSE 10 TABS/TUBE PO PRN (20:57)
[2021-07-26] MEDS ORDERED: GLUCAGON FOR INJ 1 MG VIAL SQ PRN (20:57)
[2021-07-26] MEDS ORDERED: ACETAMINOPHEN 1,000 MG/100 ML VIAL IV PRN (20:57)
--- NOTE | 2021-07-26 21:17 | CT Scan Report ---
CT SCAN OF THE ABDOMEN AND PELVIS WITHOUT CONTRAST CLINICAL HISTORY: Right flank pain, rule out ureterolithiasis COMPARISON STUDY: No previous studies for comparison. Correlation is made with CT of the chest perfo rmed on March 01, 2021. TECHNIQUE: CT scan of the abdomen and pelvis was performed from the lung bases to the proximal femurs . Images are reviewed in the axial, sagittal, and coronal planes. IV contrast was not administered fo r this examination. A dose lowering technique was utilized adhering to the principles of ALARA. CT DOSE: 546.04 mGy.cm FINDINGS: Lower chest: Minimal atelectasis is seen at dependent portions of bilateral lower lobes. Liver: Liver is mildly enlarged with diffuse decrease in attenuation of its parenchyma and no evidenc e of focal lesions or intrahepatic biliary dilatation. Gallbladder: Unremarkable. Spleen: Normal in size and attenuation. Pancreas: Unremarkable. Adrenal glands: Left adrenal gland shows nodular appearance. 2.5 cm right adrenal nodule was also see n on prior CT of the chest performed on March 01, 2021 and appear to be stable, show attenuation less than 10 Hounsfield units and most likely representing adrenal adenoma Kidneys: The unenhanced kidneys are normal in size without hydronephrosis. No renal calculi are iden tified. Interval development of prominent right perinephric fat stranding as well as few areas of flu id collection. Mild prominence of the proximal aspect of the right ureter measuring up to 7 mm in corinne meter. Distal portion of right ureter is not well seen. Punctate calculus is seen within the anatomic al region of the distal right ureter, unclear if represent small vascular calcification or ureterolit hiasis (3/296) Bowel: Bowel loops are nondilated. Evaluation is suboptimal due to lack of contrast. Appendix is nond ilated and gas filled. Cecum is positioned superiorly and anteriorly likely representing cecal basc ule. Peritoneum: There is no intraperitoneal free air or abdominal ascites. Vasculature: The abdominal aorta is normal in course and caliber. Adenopathy: None. Pelvic viscera: The bladder, and pelvic viscera are unremarkable. Skeletal structures: Minimal degenerative changes of the spine. IMPRESSION: 1. No definite hydronephrosis is seen however there is interval development of inflammatory changes in right perinephric fat also associated with mild prominence of proximal right ureter and possible p unctate calculus within anatomical region of the distal right ureter as detailed above. Evaluation of renal parenchyma is suboptimal due to lack of IV contrast. Further evaluation with renal ultrasound might be considered. 2. Stable right adrenal nodule, most likely representing adenoma. 3. Nondilated loops of bowel. Nondilated appendix. 4. Hepatic steatosis. 5. The rest of findings as above. ACT 112: Negative or not required by law. The above report was generated using voice recognition software. It may contain grammatical, syntax o r spelling errors. Electronically signed by: Nidia Funes DO 07/26/2021 9:16 PM
[2021-07-26] MEDS: NSS + 20MEQ KCL 20 MEQ/1,000 ML BAG IV SCH (21:56)
[2021-07-26] MEDS ORDERED: cefTRIAXone SODIUM 2,000 MG in DEXTROSE 5% 50 ML IV SCH (22:00)
[2021-07-26] MEDS: BACLOFEN 20 MG TAB PO SCH (22:19)
[2021-07-26] MEDS: INSULIN ASPART 100 UNITS/ML 3 ML PEN SC SCH (22:21)
[2021-07-27] MEDS: NSS + 20MEQ KCL 20 MEQ/1,000 ML BAG IV SCH ×2 (04:37→11:17)
[2021-07-27 05:51] LABS: Basophils # (auto) 0.01 K/uL (0-0.2); Basophils % (auto) 0.1 %; Eosinophils # (auto) 0.02 K/uL (0-0.5); Eosinophils % (auto) 0.2 %; Hematocrit (blood only) 36.1 % (37-47); Hemoglobin 12.4 g/dL (12.0-16.0); Immature Granulocytes # (auto) 0.02 K/uL (0.00-0.02); Immature Granulocytes % (auto) 0.2 %; Lymphocytes # (auto) 0.98 K/uL (1.2-3.4); Lymphocytes % (auto) 11.2 %; Mean Corpuscular Hgb Conc 34.3 g/dL (32-36); Mean Corpuscular Volume 87.4 fL (80-100); Neutrophils # (auto) 7.03 K/uL (1.4-6.5); Neutrophils % (auto) 80.3 %; Platelet Count 164 K/uL (130-400); RDW Coefficient of Variation 13.8 % (11.5-14.5); RDW Standard Deviation 44.3 fL (36.4-46.3); Red Blood Count 4.13 M/uL (4.2-5.4); White Blood Count 8.76 K/uL (4.8-10.8)
[2021-07-27 06:08] LABS: BUN Creatinine Ratio 7.9 (10-20); Calcium 7.5 mg/dl (8.5-10.1); Creatinine Clr Calc Pharmacy 73.2 ml/min; Est GFR (African American) 95.4 ml/min; Est GFR (Non-African American) 82.3 ml/min; Potassium 3.7 mmol/L (3.5-5.1)
[2021-07-27 07:40] LABS: Estimated Average Glucose 171 mg/dl; Hemoglobin A1C 7.6 % (4.5-5.6)
[2021-07-27] MEDS: BACLOFEN 20 MG TAB PO SCH ×2 (08:45→13:03)
[2021-07-27] MEDS ORDERED: ASPIRIN 81 MG ECTAB PO SCH (09:00)
[2021-07-27] MEDS ORDERED: UMECLIDINIUM/VILANTEROL 62.5/25MCG 7 PUFFS/INHALER INH SCH (09:00)
[2021-07-27] MEDS ORDERED: lisinopril 40 MG TAB PO SCH (09:00)
[2021-07-27] MEDS ORDERED: MAGNESIUM OXIDE 400 MG TAB PO SCH (09:00)
[2021-07-27] MEDS ORDERED: NON-FORMULARY MEDICATION (Potassium Gluconate 595 mg (99 mg) tablet) PO SCH (09:00)
[2021-07-27] MEDS ORDERED: PRAVASTATIN SOD 40 MG TAB PO SCH (09:00)
[2021-07-27] MEDS ORDERED: SERTRALINE HCL 50 MG TABLET PO SCH (09:00)
[2021-07-27] MEDS: INSULIN ASPART 100 UNITS/ML 3 ML PEN SC SCH ×2 (09:08→13:03)
--- NOTE | 2021-07-27 13:24 | Hospitalist Progress Note ---
Date of Service July 27, 2021 Assessment & Plan (1) Pyelonephritis: Plan: Observation status to medical Follow up blood and urine cultures - currently growing GNB IV ceftriaxone 2g daily IV NSS @ 150 ml/hr CT A/P to assess for ureterolithiasis (2) Current smoker: Plan: Declines nicotine patch (3) Diabetes: Plan: HbA1C wih AM labs Hold outpatient regimen with metformin and glipizide BSG ACHS Novolog ACHS carb and correction coverage (4) Hypertension: Plan: Hold amlodipine and HCTZ, can restart if blood pressure increases. Continue lisinopril 40mg PO daily (5) Chronic obstructive pulmonary disease: Plan: Continue Anoro Ellipta 1 puff daily (6) Depression: Plan: Sertraline 150mg PO daily (7) Chronic back pain: Plan: Continue baclofen 10mg TID Admission and Anticipated Discharge Date Admission Date: July 26, 2021 Subjective Patient seen on daily rounds today. She is a 50-year-old white female with a past medical history of HTN, NIDDM, and COPD. She was admitted 07/26 with pyelonephritis. Seen in the ED initially in the overnight hours of 07/25 through 07/26 with right- sided flank pain. At that time she was found to have leukocytosis of 16,000 with a left shift and a grossly infected urine. Was given Rocephin and offered hospitalization; however, she refused and she was discharged home with cefdinir. On 07/26, return to the ED due to development of nausea and vomiting and inability to take her antibiotic. CT of the abdomen and pelvis performed showing no evidence of hydronephrosis with right perinephritic fat stranding consistent with pyelonephritis and few fluid collections. Otherwise, leukocytosis downtrending. Patient was hospitalized for further evaluation and care. Today, patient's white blood cell count has normalized and is 8.76. She is remained afebrile and hemodynamically stable. Overall, her right flank pain has nearly resolved. She is no longer having nausea or vomiting. Still having subjective fevers and chills but no fever spikes since yesterday at 4pm (Tmax 38.7 on 07/26 at 1600), Urine culture has come back showing E. coli with some resistance. Is sensitive to cephalosporins. Review of Systems Review of Systems: All systems reviewed and are unremarkable except as noted in HPI and below Reports subjective fevers/chills. Otherwise, denies headache, nasal congestion, sore throat, cough, chest pain, shortness of breath, abdominal pain, current flank pain, nausea, vomiting, dysuria, hematuria, frequency, skin lesions or rashes. Physical Exam Physical Exam: General: Resting comfortably in her hospital bed. Does not appear ill or toxic Neck:[No JVD.][Negative hepatojugular reflex] Cardiac:[RRR][without M/G/R] Lungs:[CTA][without W/R/R] Abdomen:[Normoactive X4.][Soft and nontender in all quadrants.] Extremities: [No peripheral clubbing cyanosis or edema] Neuro:[A&O X4][cranial nerves II through XII are grossly intact][no focal neuro deficits] Skin:[No obvious skin lesions or rashes] Results & Data Results & Data ([facility]) Vital Signs (Past 12 Hours) Vital Signs Temp Pulse Resp BP Pulse Ox 07/27/21 07:48 37.1 C 92 H 18 138/78 94 PG Care Time/CCT Total # of Minutes Spent Total Time Spent with Patient: Total time spent is greater than 50% in coordination of care (as documented) at patient's floor/unit and/or counseling patient: Coding Diagnoses Pyelonephritis N12 Current smoker F17.200 Diabetes E11.9 Hypertension I10 Chronic obstructive pulmonary disease J44.9 Depression F32.9 Chronic back pain M54.9; G89.29
--- NOTE | 2021-07-27 14:53 | Ultrasound Report ---
RENAL ULTRASOUND HISTORY: right kidney- pyelo with ? fluid collection COMPARISON: Abdomen and pelvis CT 07/26/2021. FINDINGS: Right kidney: 11.6 cm. No hydronephrosis. Normal corticomedullary differentiation and cortical thickn ess. Left kidney: 10.9 cm. No hydronephrosis. Normal corticomedullary differentiation and cortical thickne ss. Bladder: No bladder wall thickening. The bilateral ureteral jets were identified. IMPRESSION: Normal renal ultrasound. ACT 112: Negative or not required by law. Electronically signed by: Ravi Barrera M.D. 07/27/2021 2:52 PM
--- NOTE | 2021-07-27 16:37 | Discharge Summary ---
Date of Service July 27, 2021 Admission HPI Per Admitting Provider Breanne Fairchild is a 50 year old female who presents to the ER with right flank pain, fevers and chills. Symptoms started with right flank pain, aching, no radiation, worse on any movement. Progressively getting worse over the week. She was seen in the ER last night, diagnosed with pyelonephritis treated with 1g ceftriaxone and discharged on cefdinir. She was unable to tolerate oral antibiotics when she got home due to vomiting after taking them therefore returned to the ER for admission. No prior history of UTIs or kidney stones. In the ER WBC improved from 16 to 13. She was referred to medicine for admission and ongoing management of pyelonephritis. Principal Diagnosis 1. Pyelonephritis 2. Leukocytosisresolved 3. Right flank painresolved 4. Ascending urinary tract infectionE. coli 5. Hypomagnesemia Discharge Exam General: Resting comfortably in her hospital bed. Does not appear ill or toxic Neck: No JVD. Negative hepatojugular reflex Cardiac: RRR without M/G/R Lungs: CTA without W/R/R Abdomen: Normoactive X4. Soft and nontender in all quadrants. No CVA tenderness Extremities: No peripheral clubbing cyanosis or edema Neuro: A&O X4 cranial nerves II through XII are grossly intact no focal neuro deficits Skin: No obvious skin lesions or rashes Discharge Data Allergies Allergy/AdvReac Type Severity Reaction Status Date / Time niacin Allergy Severe redness, Verified 07/26/21 17:01 itching head to toe Sulfa (Sulfonamide Allergy Severe redness Verified 07/26/21 17:01 Antibiotics) head to toe and itching Consultations 07/26/21 18:12 ED Decision to Admit Stat Ordered Studies 07/26/21 19:07 CT abd pelvis wo con Stat IMPRESSION: 1. No definite hydronephrosis is seen however there is interval development of inflammatory changes in right perinephric fat also associated with mild prominence of proximal right ureter and possible punctate calculus within anatomical region of the distal right ureter as detailed above. Evaluation of renal parenchyma is suboptimal due to lack of IV contrast. Further evaluation with renal ultrasound might be considered. 2. Stable right adrenal nodule, most likely representing adenoma. 3. Nondilated loops of bowel. Nondilated appendix. 4. Hepatic steatosis. 5. The rest of findings as above. 07/27/21 14:30 US renal/blad retro comp Routine FINDINGS: Right kidney: 11.6 cm. No hydronephrosis. Normal corticomedullary differentiation and cortical thickness. Left kidney: 10.9 cm. No hydronephrosis. Normal corticomedullary differentiation and cortical thickness. Bladder: No bladder wall thickening. The bilateral ureteral jets were identified. Hospital Course (1) Pyelonephritis: -Patiently initially presented to the ED in the overnight hours of 07/25-07/26 with reports of flank pain, fever, and generally feeling ill. Her urine was grossly infected and she had a white count of 16,000 with a left shift -A right upper quadrant ultrasound was done for concern of cholecystitisthis was negative -She was given IV Rocephin and it was advised that she stay in the hospital for treatment; however, she was adamant to go home. She was discharged with Omnicef but developed intractable nausea and vomiting prohibiting her ability to take this antibiotic -Presented back to the ED on 07/26 where she was found to have a downtrending leukocytosis of 13.09 with a persistent left shift With a fever of 101.6 F -At that time, a CT of the abdomen and pelvis was performed showing no evidence of hydronephrosis with right perinephric fat stranding consistent with pyelonephritis. There was concern of fluid collection. Patient was subsequently hospitalized for further evaluation and care -She was continued on IV Rocephin. -Blood cultures obtained and showing no growth to date -A renal ultrasound was done showing no evidence of fluid collection or drainable abscess -Patient's white blood cell count has actually normalized, she has defervesced (has remained afebrile for over 24 hours) and has been on IV antibiotic therapy now for 48 hours (including initial dose given in the ED) -Her urine culture is showing E. coli with some resistance but sensitive to cephalosporins Urine Culture Final 07/27/21-1130 Organism 1 Escherichia coli [place] Count >100,000 CFU/ml Sens Sensitivities to Follow E coli RX M.I.C. --- --------- Amox/Clav S <=8/4 Ampicillin R >16 Amp/Sul R >16/8 Cefazolin S 4 Cefepime S <=2 Ceftriaxone S <=1 Ciprofloxacin S <=0.25 Ertapenem S <=0.5 Gentamicin S <=4 Levofloxacin S <=0.5 Meropenem S <=1 Nitrofurantoin S <=32 Tobramycin S <=4 Trimeth/Sulfa R > Pip/Tazo S <=16 -At this point time, she is hopeful to be discharged home. She is medically and hemodynamically stable, her white blood cell count has normalized, her flank pain has resolved and she has no CVA tenderness. Her culture data is showing E. coli with sensitivity to cephalosporins. -I believe she is stable for discharge home with continued antibiotic therapy (for total of 10 days) -Ultrasound shows no evidence of drainable abscess as outlined above (2) Hypomagnesemia: -Replace with IV mag sulfate in the ED -Discharged with continued oral supplementation (3) Current smoker: -Declines nicotine patch -Encourage smoking cessation (4) Diabetes: -Resume prehospital metformin and Amaryl (5) Hypertension: Resume prehospital lisinopril, amlodipine and HCTZ, (6) Chronic obstructive pulmonary disease: Continue Anoro Ellipta 1 puff daily (7) Depression: Sertraline 150mg PO daily (8) Chronic back pain: Continue baclofen 10mg TID Total Time Total Time Spent Total Time Spent (In Minutes): 60 Discharge Plan Discharge Items Patient Disposition: Home - Self-Care Reason For Visit: PYELONEPHRITIS Discharge Diagnosis: 1. Acute Pyelonephritis 2. Ascending UTI- E.Coli 3. Leukocytosis- resolved 4. Hypomagnesemia- replaced Condition on Discharge: Fair Activity: Resume your previous activity Non-emergency contact: Primary Care Provider Call non-emergency contact if: your symptoms worsen and your temperature is above 101 Follow-up/Referrals: PCP,NO [Primary Care Provider] - Diet: Carb Consistent or DM2 Addtl Attending Provider Instructions: - complete full course of antibiotic therapy (can start tomorrow) - note the addition of magnesium supplementation - follow up with your Family Physician within 7-10 days - return to the Ed for new or worsening symptoms Pending Studies at Discharge: Yes Studies:: final blood cultures-- currently No growth to date Stand-Alone Forms: My [employer], Smoking Cessation Medications and DC Order Prescriptions: New magnesium oxide 400 mg magnesium tablet 400 mg PO DAILY Qty: 30 RF: 0 Continued potassium gluconate 595 mg (99 mg) tablet 595 mg PO DAILY RF: 0 gemfibrozil 600 mg tablet 600 mg PO BID RF: 0 albuterol sulfate 90 mcg/actuation HFA aerosol inhaler 2 puff inhalation Q4H PRN (Reason: sob) Qty: 18 RF: 3 Anoro Ellipta 62.5-25 mcg/actuation blister with device 1 inh inhalation DAILY Qty: 60 RF: 5 fluticasone propionate [Allergy Relief (fluticasone)] 50 mcg/actuation spray,suspension 1 spray intranasal DAILY Qty: 9.9 RF: 1 levocetirizine 5 mg tablet 5 mg PO DAILY PRN (Reason: allergy symptoms) Qty: 30 RF: 1 Fish Oil 120 mg-180 mg- 60 mg-1,200 mg capsule,delayed release(DR/EC) 1 cap PO QAM RF: 0 lisinopril 40 mg tablet 40 mg PO QAM Qty: 90 RF: 0 magnesium oxide 500 mg capsule 500 mg PO QAM RF: 0 sertraline 100 mg tablet 150 mg PO QAM RF: 0 aspirin 81 mg Tablet,Delayed Release (Dr/Ec) 81 mg PO QAM RF: 0 cefdinir 300 mg capsule 300 mg PO BID 10 Days Qty: 20 RF: 0 glipizide 5 mg tablet extended release 24hr 5 mg PO DAILY RF: 0 baclofen 20 mg tablet 20 mg PO TID RF: 0 albuterol sulfate 2.5 mg /3 mL (0.083 %) solution for nebulization 2.5 mg continuous nebulization UD PRN (Reason: Shortness Of Breath Or Wheezing) RF: 0 amlodipine 10 mg tablet 10 mg PO DAILY RF: 0 hydrochlorothiazide 12.5 mg capsule 25 mg PO DAILY RF: 0 metformin 500 mg tablet 1,000 mg PO BIDM RF: 0 pravastatin 80 mg tablet 80 mg PO DAILY RF: 0 diclofenac sodium 1 % gel 1 ea TOPICAL UD PRN (Reason: Pain) RF: 0 Discharge Orders: Discharge Order (Routine); Ordered 07/27/21 Ordered By: Renea Haq/Other Patient Handouts: A1C, Managing Type 2 Diabetes, ED Pyelonephritis, Female (Adult) Admission Data Admit Date/Time: 07/26/21 19:14 Attending Provider: Rio Shah Admit Provider: Too Ventura Primary Care Provider: PCP,NO Other Providers: Rio Shah Other Interventions: Discharge Summary Assessment (RN) Last Done: 07/27/21 17:13 Supervising Physician Co-Signing Physician Notes I supervised Renea Alvarez PA-C on the care of this patient. I interviewed and examined the patient independently of her. The plan is as written in her note except for any following changes/exceptions: None Doing well today. She has been afebrile and has improved CVA tenderness. Urine sensitivities are back and we can give appropriate PO abx. Renal u/s without signs of abscess. Stable for discharge today. Coding Level of Care Code Established Pt D/C DAY MANAGEMENT >30 MINS Patient Type Established Diagnoses Pyelonephritis N12 Current smoker F17.200 Diabetes E11.9 Hypertension I10 Chronic obstructive pulmonary disease J44.9 Depression F32.9 Chronic back pain M54.9; G89.29 Hypomagnesemia E83.42 Time Spent (min) 60
--- NOTE | 2021-07-28 06:21 | Electrocardiogram Report ---
Test Reason : Blood Pressure : / mmHG Vent. Rate : 100 BPM Atrial Rate : 100 BPM P-R Int : 142 ms QRS Dur : 080 ms QT Int : 346 ms P-R-T Axes : 056 059 061 degrees QTc Int : 446 ms Normal sinus rhythm Normal ECG When compared with ECG of 25-JUL-2021 21:54, No significant change was found Confirmed by Peter Mancera ([id number]) on 07/28/2021 6:21:17 AM Referred By: REFERRED SELF Confirmed By:Peter Mancera
== END 2021-07-27 17:26 | disposition home or self-care (01) ==
LOC: ED 15:50 → 3N 15:50 → SUATTDRO 19:14 → 3N 20:47